=== PATIENT | male | born 1970 | race Caucasian/White ===

== ENCOUNTER → 2018-10-17 | Outpatient (CLI) | payer SELFPAY ==
[2018-10-19 08:17] VITALS: BP 167/101
--- NOTE | 2018-10-19 08:17 | Cardiology Stress Test Report ---
Stress Test Report Date of Procedure/Referring: Date of Procedure: Oct 17, 2018 PCP Gianni Carballo MD Admitting Physician No,Local Physician Indications: Hypertension Baseline Heart Rate: 88 Baseline Blood Pressure: Blood Pressure Systolic: 167 Blood Pressure Diastolic: 101 Baseline EKG: Baseline EKG: normal sinus rhythm Summary/Conclusion: Summary: In summary, the patient started exercising with a baseline heart rate, blood pressure and EKG mentioned above Patient was able to exercise for a total of 4 minutes on Wander protocol, 5.8 METs Maximum heart rate 158 Maximum blood pressure 231/11 Stress EKG Minimal nondiagnostic changes Recovery EKG Return to baseline Conclusion: 1. Good exercise tolerance for a total of 4 minutes on Wander protocol, 5.8 METs, achieving 92 percent of maximum expected heart rate 2. Minimal nondiagnostic EKG changes with exercise returned to baseline during recovery 3. No arrhythmia was noted 4. Baseline hypertension with severe hypertensive response to exercise GIANNI CARBALLO MD Oct 19, 2018 08:17
== END ==
LOC: CARD 08:54
PROVIDERS: ATTEND Internal Medicine Cardiovascular Disease
DX: I10 Essential (primary) hypertension (principal); R06.09 Other forms of dyspnea; E11.9 Type 2 diabetes mellitus without complications; G47.33 Obstructive sleep apnea (adult) (pediatric)
CPT/HCPCS: 93017; 93306